=== PATIENT | male | born 1965 | race Caucasian/White ===

== ENCOUNTER 2022-03-19 15:32 | Outpatient (CLI) | payer OTHER, SELFPAY ==
--- NOTE | ~2022-03-19 | XR_ITS ---
EXAM: XR shoulder RT min 2V DATE: 03/19/2022 15:51 HISTORY: S49.91XA - Unspecified injury of right shoulder and upper... . COMPARISON: None available. FINDINGS: Normal mineralization. No fracture or dislocation. No lytic or blastic lesion. Mild acromi oclavicular hypertrophy. Mild osteophytosis at the glenohumeral joint. Mild calcific deposition in th e rotator cuff. No erosion or periosteal change. Soft tissues within normal limits. IMPRESSION: Mild rotator cuff calcific tendinitis. Mild degenerative change at the acromioclavicular and glenohumeral joints. Reviewed, dictated and finalized at location K.
== END 2022-03-19 15:33 | disposition home or self-care (01) ==
PROVIDERS: PCP Family Medicine; Visit Provider Physician Assistant
DX: S49.91XA Unspecified injury of right shoulder and upper arm, initial encounter (principal); M19.011 Primary osteoarthritis, right shoulder; M77.8 Other enthesopathies, not elsewhere classified
CPT/HCPCS: 73030